=== PATIENT | female | born 1970 | race Two or more races ===

== ENCOUNTER → 2017-12-02 | Outpatient (CLI) | payer OTHER ==
[~2017-12-02] MED LIST: DULA1.5P SC; LISI5TAB7 PO; MULT-224 PO; VALE100C PO; [UNRECOGNIZED DRUG - REMARK] PO
[2017-12-02 10:32] LABS: CHLORIDE 108 mmol/L (98-107)
[2017-12-02 10:41] LABS: ALANINE AMINOTRANSFERASE 39 U/L (12-78); ALBUMIN 3.8 g/dL (3.4-5.0); ALKALINE PHOSPHATASE 148 U/L (45-117); ANION GAP 7 mmol/L (5-15); BILIRUBIN,TOTAL 0.5 mg/dL (0.2-1.0); CALCIUM 8.9 mg/dL (8.5-10.1); CREATININE 0.69 mg/dL (0.55-1.02); TOTAL PROTEIN 8.5 g/dL (6.4-8.2)
== END | disposition home or self-care (01) ==
LOC: MERGE 08:30 → STAR 08:43
PROVIDERS: ATTEND Surgery
DX: L73.1 Pseudofolliculitis barbae (principal); Z88.0 Allergy status to penicillin; Z88.8 Allergy status to other drugs, medicaments and biological substances
CPT/HCPCS: 36415; 80053; 93005